=== PATIENT | male | born 1960 | race African-American/Black ===

== ENCOUNTER 2017-07-28 13:03 | Emergency (ER) | payer OTHER ==
[~2017-07-28] VITALS: Ht 172.7 cm; Wt 68.2 kg
[2017-07-28 14:16] LABS: CHLORIDE 103 mEq/L (99-109); POTASSIUM 4.1 mEq/L (3.7-5.4); SODIUM 120 mEq/L (136-147)
[2017-07-28 14:18] LABS: GLUCOSE 130 mg/dL (70-99)
[2017-07-28 14:22] LABS: CREATININE 0.8 mg/dL (0.6-1.3); GFR ESTIMATE (CALCULATED) > 59 mL/min/ (58.99-99999)
[2017-07-28 14:23] LABS: UREA NITROGEN (BUN) 8 mg/dL (9-23)
[2017-07-28 14:33] LABS: BASOPHIL (%) 0.2 % (0-1); EOSINOPHIL (%) 0 % (0-5); HEMATOCRIT 42.2 % (38.0-50.0); HEMOGLOBIN 13.3 G/DL (12.5-16.6); IMMATURE GRANULOCYTE (%) 0.9 % (0.0-0.7); LYMPHOCYTE (%) 18.8 % (15-42); LYMPHOCYTE COUNT 1.8 K/uL (1.0-2.8); MCH 21.5 PG (29.0-34.0); MCHC 31.5 G/DL (30.0-36.0); MCV 68.3 FL (86-99); MONOCYTE COUNT 0.6 K/uL (0-0.8); NEUTROPHIL (%) 74.1 % (45-76); NEUTROPHIL COUNT 6.9 K/uL (1.8-6.4); PLATELET COUNT 204 K/uL (156-360); RBC DIS.WIDTH-SD 40.1 % (39-53); RED BLOOD COUNT 6.18 M/uL (4.00-5.50); WHITE BLOOD COUNT 9.3 K/uL (4.1-10.2)
[2017-07-28 19:04] VITALS: BP 197/101
== END 2017-07-28 19:05 | disposition short-term general hospital (02) ==
LOC: EME 13:03
PROVIDERS: Emergency Medicine
DX: I63.9 Cerebral infarction, unspecified (principal); E87.1 Hypo-osmolality and hyponatremia; B19.20 Unspecified viral hepatitis C without hepatic coma; Z87.891 Personal history of nicotine dependence
CPT/HCPCS: 70450; 70551; 80048; 85025; 93005; 99281; 99285; J7030